=== PATIENT | male | born 1935 | race Caucasian/White ===

== ENCOUNTER → 2017-02-11 | Outpatient (CLI) | payer MEDICARE, OTHER | LOC: GMA 10:47 | PROVIDERS: ATTEND Nurse Practitioner Family | DX: R19.7 Diarrhea, unspecified (principal) ==

== ENCOUNTER → 2017-02-25 | Outpatient (CLI) | payer MEDICARE, OTHER ==
--- NOTE | 2017-02-25 15:35 | CT ---
EXAM DESCRIPTION: Abdomen/Pelvis w/Contrast CLINICAL HISTORY: UNSPECIFIED ABD PAIN COMPARISON: 07/27/2008 TECHNIQUE: CT of the abdomen and pelvis was performed following intravenous contrast. Multiple axial images and multiplanar reconstructions were generated. FINDINGS: Lung bases: The visualized lung bases are clear. Partially visualized cardiac pacemaker leads. Solid organs: Small cyst or hemangioma in the lateral aspect of the spleen. The liver, gallbladder, pancreas, kidneys, and adrenal glands are unremarkable. Gastrointestinal: The stomach and small intestine are unremarkable. The appendix is not visualized, but there is no pericecal inflammation. No free fluid or free air. There is a moderate volume of stool throughout the colon. Vascular: Moderate calcific plaque in the abdominal aorta and its major branches. Lymph nodes: No pathologically enlarged lymph nodes are present by CT size criteria. Musculoskeletal and soft tissues: No destructive osseous lesions are present. The bones are demineralized. Grade 2 anterolisthesis of L5 on S1. Urinary bladder and pelvic organs: The urinary bladder is normal. The prostate is enlarged. IMPRESSION: 1. No acute abdominal or pelvic CT findings. 2. Moderate volume of stool in the colon. Correlate for constipation. 3. Atherosclerosis. 4. Other findings as above. Electronically signed by: Kain Lopez MD 02/25/2017 3:34 PM CDT
== END | disposition home or self-care (01) ==
LOC: CT 08:04
PROVIDERS: ATTEND Family Medicine
DX: R10.9 Unspecified abdominal pain (principal)

== ENCOUNTER → 2017-03-19 | Outpatient (CLI) | payer MEDICARE, OTHER | END | disposition home or self-care (01) | LOC: LAB 11:40 | PROVIDERS: ATTEND Family Medicine | DX: R19.7 Diarrhea, unspecified (principal) ==

== ENCOUNTER → 2017-06-11 | Outpatient (CLI) | payer MEDICARE, OTHER | LOC: GMAJ 10:30 | PROVIDERS: ATTEND Family Medicine | DX: N40.0 Benign prostatic hyperplasia without lower urinary tract symptoms (principal); E78.00 Pure hypercholesterolemia, unspecified; I10 Essential (primary) hypertension ==

== ENCOUNTER → 2017-08-04 | Outpatient (CLI) | payer MEDICARE, OTHER | LOC: LAB.O 12:05 | DX: R19.7 Diarrhea, unspecified (principal) ==

== ENCOUNTER → 2018-11-26 | Outpatient (CLI) | payer MEDICARE, OTHER | LOC: GMATM 13:15 | PROVIDERS: ATTEND Nurse Practitioner Family | DX: R74.8 Abnormal levels of other serum enzymes (principal) ==

== ENCOUNTER → 2019-07-11 | Outpatient (CLI) | payer MEDICARE, OTHER | LOC: GMAJ 10:57 | PROVIDERS: ATTEND Family Medicine | DX: E53.8 Deficiency of other specified B group vitamins (principal); E55.9 Vitamin D deficiency, unspecified ==

== ENCOUNTER → 2019-07-26 | Outpatient (CLI) | payer MEDICARE, OTHER | LOC: US 13:30 | PROVIDERS: ATTEND Family Medicine | DX: R41.82 Altered mental status, unspecified (principal); D73.4 Cyst of spleen; R10.9 Unspecified abdominal pain ==

== ENCOUNTER → 2019-08-24 | Outpatient (CLI) | payer MEDICARE, OTHER | LOC: GMAJ 14:46 | PROVIDERS: ATTEND Family Medicine | DX: A09 Infectious gastroenteritis and colitis, unspecified (principal); R53.82 Chronic fatigue, unspecified ==

== ENCOUNTER 2019-11-10 05:27 | Day surgery (SDC) | payer MEDICARE, OTHER ==
[2019-11-10] MEDS ORDERED: PROPOFOL 200 MG/20 ML VIAL IV ONE (07:00)
[2019-11-10] MEDS ORDERED: LIDOCAINE 1% 10 ML VIAL INJ ONE (07:00)
[2019-11-10] MEDS ORDERED: LACTATED RINGERS 1,000 ML ONE (07:00)
[2019-11-10] MEDS ORDERED: fentaNYL CITRATE INJ 50 MCG/ML AMP ONE (08:07)
[2019-11-10] MEDS ORDERED: LACTATED RINGERS 1,000 ML IVS ONE ×2 (09:30)
--- NOTE | 2019-11-10 10:00 | OP ---
DATE OF PROCEDURE: 11/10/19 PREOPERATIVE DIAGNOSIS: 1. Weight loss, needing colonoscopy. 2. Abdominal pain. PROCEDURE: 1. EGD. 2. Colonoscopy. SURGEON: Don Mccabe MD PROCEDURE: He had been on Xarelto, which was stopped. He was consented and brought to the Operating Suite in the lateral position. He was made comfortable. Bite block put in place. EGD was performed. The esophagus and gastroesophageal junction appeared normal. The stomach, fundus and body appeared normal. The pyloric channel was normal. The duodenum to the third portion was normal. There did appear to be some mild gastritis, so a random rental representative biopsy was taken at the antrum. The scope was carefully withdrawn. Air was aspirated. No other abnormalities were seen. He was then placed lateral. Colonoscopy was performed. Digital rectal exam was normal. The colonoscope was entered. There was a lot of peristalsis, but we were able to ultimately get through to the cecum with some looping. We put him on his back and this aided it. We did not cannulate the terminal ileum. Upon withdrawal, all the colon was normal. No significant polyps, strictures or colitis were seen. Nothing to explain his weight loss. He was then taken to Recovery to be discharged. We will see him in followup and will discuss a more proper diet and calorie management. #[id number] [facility]
[2019-11-10 10:11] VITALS: BP 157/92; TEMP 96; O2SAT 94
== END 2019-11-10 10:00 | disposition home or self-care (01) ==
LOC: AMB 05:27
PROVIDERS: ATTEND Surgery
DX: R63.4 Abnormal weight loss (principal); R10.9 Unspecified abdominal pain; K29.50 Unspecified chronic gastritis without bleeding; R19.4 Change in bowel habit; I48.91 Unspecified atrial fibrillation; J44.9 Chronic obstructive pulmonary disease, unspecified; I10 Essential (primary) hypertension; E78.00 Pure hypercholesterolemia, unspecified; N40.0 Benign prostatic hyperplasia without lower urinary tract symptoms; G25.81 Restless legs syndrome; G60.8 Other hereditary and idiopathic neuropathies; Z86.73 Personal history of transient ischemic attack (TIA), and cerebral infarction without residual deficits; Z95.0 Presence of cardiac pacemaker; Z88.2 Allergy status to sulfonamides; Z88.8 Allergy status to other drugs, medicaments and biological substances; Z79.01 Long term (current) use of anticoagulants; Z79.899 Other long term (current) drug therapy
CPT/HCPCS: 00813; 43239; 45378; 88305; 88342; J3010; J3490; J7120

== ENCOUNTER → 2019-12-25 | Outpatient (CLI) | payer MEDICARE, OTHER | LOC: LAB.O 13:31 | PROVIDERS: ATTEND Physician Assistant | DX: R63.4 Abnormal weight loss (principal); R19.4 Change in bowel habit ==

== ENCOUNTER → 2020-12-02 | Outpatient (CLI) | payer MEDICARE, OTHER | LOC: GMAJ 14:36 | PROVIDERS: ATTEND Family Medicine | DX: N40.0 Benign prostatic hyperplasia without lower urinary tract symptoms (principal) ==